=== PATIENT | female | born 1970 | race Caucasian/White ===

== ENCOUNTER 2017-04-25 11:02 | Emergency (ER) | payer OTHER ==
[~2017-04-25] VITALS: Ht 172.7 cm; Wt 113.1 kg
[~2017-04-25 11:02] MED LIST: CELEXA20 MG PO; CLARITIN10 M3 PO; FLEXERIL10 MG PO; LEVAQUIN750 MG PO; NAPROSYN500 MG PO; ZOFRAN4 MG PO
[2017-04-25 12:18] LABS: HEMATOCRIT 50.6 % (36.0-46.0); MCH 29.9 PG (29.0-34.0); MCHC 34.4 G/DL (30.0-36.0); MCV 87.1 FL (83-99); MEAN PLAT.VOLUME 10.3 uM^3 (9.5-12.4); PLATELET COUNT 117 K/uL (156-360); RBC DIS.WIDTH-CV 12.2 % (11.8-14.6); RBC DIS.WIDTH-SD 39.1 % (39-53); RED BLOOD COUNT 5.81 M/uL (3.80-5.20); WHITE BLOOD COUNT 4.2 K/uL (4.1-10.2)
[2017-04-25 12:30] LABS: CHLORIDE 105 mEq/L (99-109); POTASSIUM 3.7 mEq/L (3.7-5.4); SODIUM 136 mEq/L (136-147)
[2017-04-25 12:32] LABS: GLUCOSE 110 mg/dL (70-99)
[2017-04-25 12:33] LABS: ANION GAP 9 MEQ/L (2-14)
[2017-04-25 12:36] LABS: GFR ESTIMATE (CALCULATED) 57 mL/min/
[2017-04-25 12:37] LABS: UREA NITROGEN (BUN) 12 mg/dL (9-23)
[2017-04-25 12:48] LABS: QUANTITATIVE HCG < 4.0 MIU/ML
[2017-04-25 15:42] LABS: ADD MIUA? YES; BILIRUBIN SMALL; BLOOD MODERATE; COLOR AMBER ((YELLOW)); GLUCOSE (STRIP) NEGATIVE; KETONES NEGATIVE; LEUKOCYTES NEGATIVE; NITRITE NEGATIVE; PROTEIN (STRIP) 100; SPECIFIC GRAVITY 1.028 (1.000-1.030)
[2017-04-25 15:53] LABS: BACTERIA RARE /HPF; EPITHELIAL CELLS RARE /HPF; MUCUS TRACE /LPF; UCUL ADDED? NO; WHITE BLOOD CELLS 0-5 /HPF (0-5)
[2017-04-25 16:03] LABS: HYALINE CASTS 0-5 /LPF
[2017-04-25] MEDS ORDERED: ZOFRAN ODT4 MG PO (16:10)
[2017-04-25 17:31] VITALS: BP 125/75
== END 2017-04-25 17:32 | disposition home or self-care (01) ==
LOC: EME 11:02
PROVIDERS: Physician Assistant
DX: R31.9 Hematuria, unspecified (principal); R39.15 Urgency of urination; E86.0 Dehydration; F41.9 Anxiety disorder, unspecified; Z88.0 Allergy status to penicillin
CPT/HCPCS: 74020; 80048; 81003; 84702; 85027; 99281; 99284; J2405; J7030

== ENCOUNTER 2017-07-13 06:48 | Emergency (ER) | payer OTHER ==
[~2017-07-13] VITALS: Ht 172.7 cm; Wt 114.8 kg
[~2017-07-13 06:48] MED LIST changes: +ZOFRAN ODT4 MG PO
[2017-07-13 07:38] LABS: HEMATOCRIT 42.6 % (36.0-46.0); HEMOGLOBIN 14.5 G/DL (11.9-15.5); MCH 30.3 PG (29.0-34.0); MCV 88.9 FL (83-99); PLATELET COUNT 299 K/uL (156-360); RBC DIS.WIDTH-CV 12.9 % (11.8-14.6); RBC DIS.WIDTH-SD 42.6 % (39-53); RED BLOOD COUNT 4.79 M/uL (3.80-5.20); WHITE BLOOD COUNT 5.4 K/uL (4.1-10.2)
[2017-07-13 07:49] LABS: CHLORIDE 107 mEq/L (99-109); POTASSIUM 4.1 mEq/L (3.7-5.4); SODIUM 138 mEq/L (136-147)
[2017-07-13 07:50] LABS: GLUCOSE 98 mg/dL (70-99)
[2017-07-13 07:54] LABS: GFR ESTIMATE (CALCULATED) > 59 mL/min/
[2017-07-13 07:55] LABS: UREA NITROGEN (BUN) 16 mg/dL (9-23)
[2017-07-13 07:58] LABS: TROP-I INTERPRETATION NEGATIVE; TROPONIN-I < 0.01 ng/mL (0.0-0.30)
[2017-07-13 08:19] LABS: ALBUMIN 3.8 g/dL (3.2-4.8)
[2017-07-13 08:22] LABS: TOTAL PROTEIN 6.7 g/dL (6.4-8.3)
[2017-07-13 08:24] LABS: TOTAL BILIRUBIN 0.6 mg/dL (0.0-1.0)
[2017-07-13 08:25] LABS: ALKALINE PHOSPHATASE 77 IU/L (3-129)
[2017-07-13 08:27] LABS: AST (GOT) 15 IU/L (2-34); DIRECT BILIRUBIN 0.2 mg/dL (0.0-0.3)
[2017-07-13 08:28] LABS: ALT (GPT) 12 IU/L (3-49)
[2017-07-13 09:58] LABS: TROP-I INTERPRETATION NEGATIVE; TROPONIN-I < 0.01 ng/mL (0.0-0.30)
[2017-07-13 10:47] VITALS: BP 122/81
== END 2017-07-13 11:07 | disposition home or self-care (01) ==
LOC: EME 06:48
PROVIDERS: Nurse Practitioner Family
DX: R07.89 Other chest pain (principal); J34.89 Other specified disorders of nose and nasal sinuses; J06.9 Acute upper respiratory infection, unspecified; Z86.718 Personal history of other venous thrombosis and embolism; Z82.49 Family history of ischemic heart disease and other diseases of the circulatory system
CPT/HCPCS: 71020; 80048; 80076; 84484; 85027; 93005; 99281; 99285